=== PATIENT | male | born 1930 | race Caucasian/White ===

== ENCOUNTER → 2016-08-09 | Outpatient (CLI) | payer MEDICARE, OTHER ==
[~2016-08-09] MED LIST: ASPI81TA82 PO; ATOR20TA42 PO; AVOD0.5C PO; COUM3TAB PO; FENO50TA PO; FISH1000 PO; FURO40TA PO; KLOR20TA6 PO; METO25CR PO; NIAS10004 PO; ONDA1TAB16 PO; TAB-TAB PO; TAMS0.4C67 PO; TOVIAZ PO
== END ==
LOC: PLAB 13:51
DX: M32.10 Systemic lupus erythematosus, organ or system involvement unspecified (principal)
CPT/HCPCS: 36415; 86038; 86235

== ENCOUNTER 2016-10-31 14:37 | Emergency (ER) | payer MEDICARE, OTHER ==
[2016-10-31 14:55] VITALS: BP 101/54; PULSE 64; RESP 20; TEMP 99; O2SAT 95
[2016-10-31] MEDS ORDERED: TOPR25TA PO (15:02)
[2016-10-31] MEDS ORDERED: LIPI20TA PO (15:02)
[2016-10-31] MEDS ORDERED: FINA5TAB2 PO (15:02)
[2016-10-31] MEDS ORDERED: WARF4TAB52 PO (15:02)
[2016-10-31] MEDS ORDERED: FURO20TA PO (15:02)
[2016-10-31] MEDS ORDERED: FISH1000 PO (15:02)
[2016-10-31] MEDS ORDERED: POTA-243 PO (15:02)
[2016-10-31] MEDS ORDERED: FENO50TA PO (15:02)
[2016-10-31] MEDS ORDERED: TAMS0.4C4 PO (15:02)
[2016-10-31] MEDS ORDERED: MULT1TAB46 (15:02)
[2016-10-31] MEDS ORDERED: MIRA50TA PO (15:02)
[2016-10-31] MEDS ORDERED: CHOL1CAP8 PO (15:02)
[2016-10-31] MEDS ORDERED: ASPI81CH CHEW (15:02)
[2016-10-31 15:56] VITALS: BP_SYST 120; BP_SYST 122; BP_SYST 91; BP_DIAS 54; BP_DIAS 65; BP_DIAS 68; RESP 20
[2016-10-31] MEDS ORDERED: SODIUM CHLORID 0.9% 500 ML INJ 500 ML IV ONE (16:00)
[2016-10-31] MEDS ORDERED: TETANUS/DIPHTHERIA TOXOID ADULT 0.5 ML VIAL IM ONE (16:00)
--- NOTE | 2016-10-31 16:17 | PD ---
HPI Chief Complaint: Fall Time Seen by Provider: 15:45 Travel History International Travel<30 days: No Contact w/Intl Traveler<30days: No Traveled to known affect area: No History of Present Illness HPI 86-year-old male presents to the emergency room for evaluation after having a difficult time getting off the ground. Patient was working outside, kneeling on the ground, moving concrete blocks. States he was outside for 30 minutes. Patient states he was moving concrete blocks from the front of the hospital back also and then kneeling on the ground to arrange them. After about 20 minutes, he tried to get up and was unable to. He fell from his knees to his buttocks trying to roll over to get his knees under him to stand up. States his became twisted like a pretzel. His neighbor and tried to assist him and they were unsuccessful. They called the ambulance he was able to get him into the stretcher and recommended he come to the emergency room for evaluation of weakness. Patient denies any musculoskeletal or back pain or paresthesias. Denies any general weakness, chest pain, shortness of breath, nausea, vomiting, and headache. He sustained multiple superficial abrasions to bilateral lower extremities from kneeling on concrete. Unknown last tetanus. PFSH Past Medical History Arthritis: No Asthma: No Atrial Fibrillation: Yes Blood Disorders: No Depression: Yes (PT STATES DEPRESSION OFF AND ON) Heart Rhythm Problems: Yes Cancer: No Cardiovascular Problems: Yes (CABG X4 VESSELS, AND MITRAL VALVE REPAIR) High Cholesterol: Yes Chest Pain: No Congestive Heart Failure: No COPD: No Cerebrovascular Accident: No Coronary Artery Disease: Yes Diminished Hearing: No Deep Vein Thrombosis: Yes Endocrine: No Gastrointestinal Disorders: Yes GERD: Yes Genitourinary: Yes Headaches: No Hepatitis: Yes (PT STATED "CATARRHAL JAUNDICE") Hiatal Hernia: Yes Hypertension: Yes Immune Disorder: No Kidney Stones: No Musculoskeletal: No Neurologic: No Reproductive: No Respiratory: No Migraines: No Myocardial Infarction: No Renal Failure: No Seizures: No Sleep Apnea: No Ulcer: No Past Surgical History Abdominal Surgery: Yes Appendectomy: Yes Cardiac Surgery: Yes Cholecystectomy: No Coronary Artery Bypass Graft: Yes Ear Surgery: No Endocrine Surgery: No Eye Surgery: Yes Genitourinary Surgery: No Oral Surgery: Yes Thoracic Surgery: Yes Tonsillectomy: Yes Valve Replacement: Yes (MITRAL) Other Surgery: Yes (APPENDECTOMY) Social History Alcohol Use: Yes (SOC) Tobacco Use: No Substance Use: No Allergies-Medications (Allergen,Severity, Reaction): Coded Allergies: No Known Allergies (Verified , 10/31/16) Reported Meds & Prescriptions Reported Meds & Active Scripts Active Reported Fish Oil ([place]-3 Fatty Acids) 1,000 Mg Cap 1,200 Mg PO DAILY Vitamin D3 (Cholecalciferol) 400 Unit Cap 800 Units PO DAILY Myrbetriq (Mirabegron) 50 Mg Tab 50 Mg PO DAILY Klor-Con 10 (Potassium Chloride) 10 Meq Tab 10 Meq PO DAILY Lipitor (Atorvastatin Calcium) 20 Mg Tab 20 Mg PO HS Tamsulosin (Tamsulosin HCl) 0.4 Mg Cap 0.4 Mg PO HS Multi Vitamin Daily (Multiple Vitamin) 1 Tab Tab Aspirin 81 Mg Chew 81 Mg CHEW DAILY Furosemide 20 Mg Tab 20 Mg PO DAILY Toprol XL (Metoprolol Succinate) 25 Mg Tab 25 Mg PO DAILY Finasteride 5 Mg Tab 5 Mg PO DAILY Do not crush. Tricor (Fenofibrate) 145 Mg Tab 145 Mg PO DAILY Takw with food. Warfarin 1 Mg Tab 1.5 Mg PO M,W,F Review of Systems Except as stated in HPI: all other systems reviewed are Neg Physical Exam Narrative GENERAL: Well-nourished, well-developed male in no acute distress. Afebrile. Resting comfortably in bed. Vital signs stable. SKIN: Focused skin assessment warm/dry. Superficial abrasions to bilateral lower extremities and hands. HEAD: Normocephalic. EYES: No scleral icterus. No injection or drainage. NECK: Supple, trachea midline. No JVD or lymphadenopathy. CARDIOVASCULAR: Regular rate and rhythm without murmurs, gallops, or rubs. RESPIRATORY: Breath sounds equal bilaterally. No accessory muscle use. MUSCULOSKELETAL: No cyanosis, or edema. Data Data Last Documented VS Vital Signs Date Time Temp Pulse Resp B/P Pulse Ox O2 Delivery O2 Flow Rate FiO2 10/31/16 17:21 65 20 103/53 95 10/31/16 14:55 99.0 Orders Tetanus/Diphtheria Tox Adult (Tetanus/Di (10/31/16 16:00) Sodium Chlorid 0.9% 500 Ml Inj (Ns 500 M (10/31/16 16:00) MDM Medical Decision Making Medical Screen Exam Complete: Yes Emergency Medical Condition: Yes Medical Record Reviewed: Yes Differential Diagnosis Weakness, abrasion, laceration, contusion, fracture, strain, sprain Narrative Course 86-year-old male presents to the emergency room for evaluation of having a difficult time standing up after kneeling on the concrete for 20 minutes just prior to arrival. Patient required ambulance assistance to get off the ground. He did not fall. Was outside for 30 minutes. Denies any pain at this time. Vital signs stable. When he was ambulated in the emergency room with assistance , he reports feeling weak at the knees. Some orthostatic hypotension upon standing with his systolic blood pressure dropping 30 mmHg. Patient was given 500 mL bolus. After bolus, patient's blood pressure improved. He denies any complaints and is adamantly asking to go home. States he feels less weakness in his knees upon standing. His vital signs have remained stable. He is well- appearing. Refill patient's age contributed significantly to his inability to get up without assistance from the concrete ground. I spoke to my attending physician, Dr. Dale, who agrees he is stable for discharge. Patient denies fever, chills, nausea, vomiting, lightheadedness, dizziness, generalized weakness, pain, chest pain, and shortness of breath. He was told to continue fluids and follow up with his primary care physician or return for worsening symptoms. He understands and agrees to plan. Diagnosis Primary Impression: Dehydration Referrals: Primary Care Physician Patient Instructions: Dehydration (ED), General Instructions Additional Instructions: Rest and drink plenty of fluids. Follow-up with a primary care physician. Return to the emergency room for worsening symptoms. Med/Other Pt SpecificInfo: Prescription(s) given Disposition: 01 DISCHARGE HOME Condition: Stable Selena Garcia Oct 31, 2016 16:17
[2016-10-31 16:45] VITALS: BP 129/70; PULSE 76; RESP 20; O2SAT 94
[2016-10-31 17:21] VITALS: BP 103/53; PULSE 65; RESP 20; O2SAT 95
== END 2016-10-31 18:11 | disposition home or self-care (01) ==
LOC: PHEFT 14:37
DX: E86.0 Dehydration (principal); Z23 Encounter for immunization
CPT/HCPCS: 90471; 90714; 96360; 99284; J7040

== ENCOUNTER 2016-11-03 18:19 | Emergency (ER) | payer MEDICARE, OTHER ==
[~2016-11-03] VITALS: Ht 180.3 cm; Wt 93.0 kg
[~2016-11-03 18:19] MED LIST changes: +ASPI81CH CHEW; -ASPI81TA82 PO; -ATOR20TA42 PO; -AVOD0.5C PO; +CHOL1CAP8 PO; -COUM3TAB PO; +FINA5TAB2 PO; +FURO20TA PO; -FURO40TA PO; -KLOR20TA6 PO; +LIPI20TA PO; -METO25CR PO; +MIRA50TA PO; +MULT1TAB46; -NIAS10004 PO; -ONDA1TAB16 PO; +POTA-243 PO; -TAB-TAB PO; +TAMS0.4C4 PO; -TAMS0.4C67 PO; +TOPR25TA PO; -TOVIAZ PO; +WARF4TAB52 PO
[2016-11-03 18:21] VITALS: BP 132/71; PULSE 67; RESP 15; TEMP 98.4; O2SAT 97
--- NOTE | 2016-11-03 19:05 | PD ---
HPI . Left leg swelling Chief Complaint: Edema Time Seen by Provider: 18:33 Travel History International Travel<30 days: No Contact w/Intl Traveler<30days: No Traveled to known affect area: No History of Present Illness HPI This patient presents with a chief complaint of swelling of the left lower extremity. Onset has been a few days. It has been constant. There is no associated pain. No exacerbating or relieving factors. No chest pain or shortness of breath. The patient states that he had a fall several days ago. He states that he was kneeling on his knees moving some concrete blocks when he fell backward. He states that he was unable to get up. He states that he was "twisted like a pretzel." His and neighbor were unable to assist him to his feet. Therefore rescue was called and he was brought to hospital for further evaluation. He was treated here for orthostatic hypotension with IV fluids. PFSH Past Medical History Arthritis: No Asthma: No Atrial Fibrillation: Yes Blood Disorders: No Depression: Yes (PT STATES DEPRESSION OFF AND ON) Heart Rhythm Problems: Yes Cancer: No Cardiovascular Problems: Yes (CABG X4 VESSELS, AND MITRAL VALVE REPAIR) High Cholesterol: Yes Chest Pain: No Congestive Heart Failure: No COPD: No Cerebrovascular Accident: No Coronary Artery Disease: Yes Diminished Hearing: No Deep Vein Thrombosis: Yes Endocrine: No Gastrointestinal Disorders: Yes GERD: Yes Genitourinary: Yes Headaches: No Hepatitis: Yes (PT STATED "CATARRHAL JAUNDICE") Hiatal Hernia: Yes Hypertension: Yes Immune Disorder: No Kidney Stones: No Musculoskeletal: No Neurologic: No Reproductive: No Respiratory: No Migraines: No Myocardial Infarction: No Renal Failure: No Seizures: No Sleep Apnea: No Ulcer: No ?: Not Past Surgical History Abdominal Surgery: Yes Appendectomy: Yes Cardiac Surgery: Yes Cholecystectomy: No Coronary Artery Bypass Graft: Yes Ear Surgery: No Endocrine Surgery: No Eye Surgery: Yes Genitourinary Surgery: No Oral Surgery: Yes Thoracic Surgery: Yes Tonsillectomy: Yes Valve Replacement: Yes (MITRAL) Other Surgery: Yes (APPENDECTOMY) Social History Alcohol Use: Yes (SOC) Tobacco Use: No Substance Use: No Allergies-Medications (Allergen,Severity, Reaction): Coded Allergies: No Known Allergies (Verified , 11/03/16) Reported Meds & Prescriptions Reported Meds & Active Scripts Active Reported Fish Oil ([place]-3 Fatty Acids) 1,000 Mg Cap 1,200 Mg PO DAILY Vitamin D3 (Cholecalciferol) 400 Unit Cap 800 Units PO DAILY Myrbetriq (Mirabegron) 50 Mg Tab 50 Mg PO DAILY Klor-Con 10 (Potassium Chloride) 10 Meq Tab 10 Meq PO DAILY Lipitor (Atorvastatin Calcium) 20 Mg Tab 20 Mg PO HS Tamsulosin (Tamsulosin HCl) 0.4 Mg Cap 0.4 Mg PO HS Multi Vitamin Daily (Multiple Vitamin) 1 Tab Tab Aspirin 81 Mg Chew 81 Mg CHEW DAILY Furosemide 20 Mg Tab 20 Mg PO DAILY Toprol XL (Metoprolol Succinate) 25 Mg Tab 25 Mg PO DAILY Finasteride 5 Mg Tab 5 Mg PO DAILY Do not crush. Tricor (Fenofibrate) 145 Mg Tab 145 Mg PO DAILY Takw with food. Warfarin 1 Mg Tab 1.5 Mg PO M,W,F Review of Systems Except as stated in HPI: all other systems reviewed are Neg General / Constitutional: No: Fever, Chills Cardiovascular: No: Chest Pain or Discomfort Respiratory: No: Shortness of Breath Gastrointestinal: No: Nausea, Vomiting Musculoskeletal: Positive: Edema, No: Myalgias, Arthralgias Physical Exam Narrative GENERAL: Awake and alert and in no acute distress. SKIN: Warm and dry. Patient is noted to have a bruise on the left knee. The skin of the lower extremities has normal and equal color. Normal and equal temperature. HEAD: Atraumatic. Normocephalic. EYES: Pupils equal and round. NECK: Trachea midline. CARDIOVASCULAR: Regular rate and rhythm. He has full and equal distal pulses. RESPIRATORY: No accessory muscle use. MUSCULOSKELETAL: No obvious deformities. Swelling of the left lower extremity. Nontender. NEUROLOGICAL: Awake and alert. No obvious cranial nerve deficits. Motor grossly within normal limits. Normal speech. PSYCHIATRIC: Appropriate mood and affect; insight and judgment normal. Data Data Last Documented VS Vital Signs Date Time Temp Pulse Resp B/P Pulse Ox O2 Delivery O2 Flow Rate FiO2 11/03/16 20:00 78 16 147/88 98 Room Air 11/03/16 18:21 98.4 Orders Us Leg Venous Doppler (11/03/16 18:41) Knee, Complete (4vws) (11/03/16 18:41) Ed Poc Ultrasound (11/03/16 19:17) MDM Medical Decision Making Medical Screen Exam Complete: Yes Emergency Medical Condition: Yes Medical Record Reviewed: Yes (patient's past medical history includes previous [place], hypertension, BPH, hyperlipidemia, previous PE, atrial fibrillation and is currently. He has also had a left total knee replacement.) Differential Diagnosis Differential diagnosis of leg pain includes but is not limited to lumbar radiculopathy, arthritis, myalgias, DVT. Narrative Course This patient presents for the evaluation of left lower extremity swelling. He had a fall from a kneeling position several days ago. He states that his legs were twisted abnormally when he sustained this fall. He now has a bruise on the left knee. I suspect that the left lower extreme swelling is secondary to this fall. However, he will be evaluated for possible DVT. I have also ordered an x-ray of his knee. Well's criteria: active cancer N bedridden N calf swelling Y engorged superficial veins N leg swelling Y localized tenderness N unilateral pitting edema N recent ext immobilization N h/o DVT N plausible alternative DX Y Last Impressions Knee X-Ray 11/03/16 1841 Signed Impressions: Service Date/Time: Thursday, November 03, 2016 18:44 - CONCLUSION: Intact total knee arthroplasty for technique and small joint effusion. Tommy Marrufo MD The x-ray was independently viewed by me. LLE U/S>>Normal examination. Procedures Procedure Narrative VENOUS ULTRASOUND: Following patient consent, identification of the correct patient and identification of the correct extremity, the veins of the thigh were examined from the inguinal ligament to the popliteal fossa. The vein was completely compressible along its entire course and no visible clot was seen. Diagnosis Primary Impression: Swelling of left lower extremity Patient Instructions: General Instructions, Leg Edema (ED) Disposition: 01 DISCHARGE HOME Condition: Stable Yue Almeida MD Nov 03, 2016 19:05
--- NOTE | 2016-11-03 19:13 | RADRPT ---
EXAM DATE/TIME: 11/03/2016 18:44 [facility] COMPARISON: No previous studies available for comparison. INDICATIONS : Left knee pain and swelling status post fall 4 days prior. MEDICAL HISTORY : Cardiovascular disease. SURGICAL HISTORY : CABG. Total knee replacement, left. ENCOUNTER: Initial ACUITY: 4 - 6 days PAIN SCORE: 3/10 LOCATION: Left knee. FINDINGS: Total knee arthroplasty is in place. The femoral, tibial, and patellar components appear intact. Th ere are no signs of loosening or fracture. Small joint effusion is seen. CONCLUSION: Intact total knee arthroplasty for technique and small joint effusion. Tommy Marrufo MD on November 03, 2016 at 19:12 Board Certified Radiologist. This report was verified electronically.
[2016-11-03 20:00] VITALS: BP 147/88; PULSE 78; RESP 16; O2SAT 98
--- NOTE | 2016-11-03 20:26 | RADRPT ---
EXAM DATE/TIME: 11/03/2016 20:00 [facility] COMPARISON: No previous studies available for comparison. INDICATIONS : Left knee pain and swelling status post fall 4 days prior. MEDICAL HISTORY : Cardiovascular disease. SURGICAL HISTORY : Total knee replacement, left. CABG ENCOUNTER: Initial ACUITY: 4 - 6 days PAIN SCORE: 0/10 LOCATION: Left leg. TECHNIQUE: Venous ultrasound of the leg was performed from the inguinal ligament to the proximal calf. Real-janett e, color Doppler and spectral tracing, compression and augmentation techniques were used. FINDINGS: There is normal compressibility of the deep venous system from the inguinal region to the proximal ca lf. No echogenic clot is seen in the lumen of the common femoral, femoral, popliteal, and posterior tibial veins. There is a normal response of the venous system to proximal and distal augmentation an d respiration. CONCLUSION: Normal examination. Tommy Marrufo MD on November 03, 2016 at 20:24 Board Certified Radiologist. This report was verified electronically.
[2016-11-03 20:41] VITALS: BP 154/80
== END 2016-11-03 20:45 | disposition home or self-care (01) ==
LOC: PHED 18:19
DX: M79.89 Other specified soft tissue disorders (principal); M25.562 Pain in left knee
CPT/HCPCS: 73564; 93971; 99284

== ENCOUNTER → 2017-01-28 | Outpatient (CLI) | payer MEDICARE, OTHER ==
[2017-01-28 10:15] LABS: HDL CHOLESTEROL 25.6 MG/DL (40.0-60.0); INDIRECT BILIRUBIN 0.7 MG/DL (0.0-0.8); TOTAL BILIRUBIN ADULT 1.1 MG/DL (0.2-1.0)
== END ==
LOC: PLAB 06:51
PROVIDERS: ATTEND Internal Medicine Interventional Cardiology
DX: E78.00 Pure hypercholesterolemia, unspecified (principal); Z79.899 Other long term (current) drug therapy
CPT/HCPCS: 36415; 80061; 80076

== ENCOUNTER → 2017-06-11 | Outpatient (CLI) | payer MEDICARE, OTHER ==
[~2017-06-11] MED LIST changes: +ASPI-516 CHEW; -ASPI81CH CHEW; +KLOR10TA PO; -POTA-243 PO
[2017-06-11 13:41] LABS: AUTOMATED NEUTROPHIL # 3.5 TH/MM3 (1.8-7.7); BASOPHIL # 0.1 TH/MM3 (0-0.2); BASOPHIL % 1.2 % (0.0-2.0); EOSINOPHIL # 0.2 TH/MM3 (0-0.4); HEMATOCRIT 40.4 % (39.0-51.0); HEMOGLOBIN 13.9 GM/DL (13.0-17.0); LYMPH % 24.1 % (9.0-44.0); LYMPHOCYTE # 1.3 TH/MM3 (1.0-4.8); MEAN CORPUSCULAR HEMOGLOBIN 30.9 PG (27.0-34.0); MEAN CORPUSCULAR HGB CONC 34.3 % (32.0-36.0); MEAN PLATELET VOLUME 8.5 FL (7.0-11.0); MONO % 7.9 % (0.0-8.0); MONOCYTE # 0.4 TH/MM3 (0-0.9); NEUT % 63.8 % (16.0-70.0); PLATELET COUNT 180 TH/MM3 (150-450); RED BLOOD COUNT 4.49 MIL/MM3 (4.50-5.90); RED CELL DISTRIBUTION WIDTH 14.3 % (11.6-17.2); WHITE BLOOD COUNT 5.5 TH/MM3 (4.0-11.0)
[2017-06-11 13:49] LABS: ALBUMIN 3.3 GM/DL (3.4-5.0); ALT (GPT) 26 U/L (12-78); AST (GOT) 21 U/L (15-37); BICARBONATE 28.9 MEQ/L (21.0-32.0); BLOOD UREA NITROGEN 15 MG/DL (7-18); CHLORIDE 101 MEQ/L (98-107); CHOLESTEROL 167 MG/DL (120-200); CREATININE 1.11 MG/DL (0.60-1.30); GLOMERULAR FILTRATION RATE 62 ML/MIN (>89); GLUCOSE,FASTING 278 MG/DL (74-99); SODIUM (NA) 137 MEQ/L (136-145); TRIGLYCERIDES 332 MG/DL (42-150)
[2017-06-11 13:58] LABS: ALKALINE PHOSPHATASE 71 U/L (45-117); CHOLESTEROL/ HDL RATIO 5.83 RATIO; FREE T4 0.99 NG/DL (0.76-1.46); HDL CHOLESTEROL 28.6 MG/DL (40.0-60.0); LDL CHOLESTEROL 72 MG/DL (0-99); TOTAL BILIRUBIN ADULT 0.9 MG/DL (0.2-1.0); TOTAL PROTEIN 6.5 GM/DL (6.4-8.2)
[2017-06-11 17:44] LABS: HEMOGLOBIN A1C 12.8 % (4.3-6.0)
== END ==
LOC: PLAB 09:08
PROVIDERS: ATTEND Family Medicine
DX: I10 Essential (primary) hypertension (principal); E11.9 Type 2 diabetes mellitus without complications
CPT/HCPCS: 36415; 80053; 80061; 83036; 84439; 84443; 85025

== ENCOUNTER 2017-08-02 21:59 | Observation (INO) | payer MEDICARE, OTHER ==
[~2017-08-02] VITALS: Ht 182.9 cm; Wt 87.4 kg
[2017-08-02 21:59] VITALS: BP 131/69; PULSE 73; RESP 18; TEMP 98.9; O2SAT 95
--- NOTE | 2017-08-02 22:06 | PD ---
HPI Chief Complaint: Dizzy Time Seen by Provider: 22:03 Travel History International Travel<30 days: No Contact w/Intl Traveler<30days: No Traveled to known affect area: No History of Present Illness HPI Patient states that as he was walking around he just suddenly felt very lightheaded and dizzy and patient placed himself down because he was afraid he would fall. He was not feeling much better so he asked his who lives with them at a private home. Patient then called 911 and he was brought in by EMS. [id number], his first glucose upon arrival by EMS was 26, he was given D50, his glucose went up to the 200s and by the time he arrived to the ER he was back down to the 90s, and then a repeat those shortly after was down to 60. Patient is on glyburide and Metformin. Patient denies feeling any lightheaded or dizziness prior to this particular episode, denies any nausea vomiting diarrhea, denies any pain to any part of his body, No known drug allergies Past medical history significant for cataracts, tonsillectomy, CABG 4, mitral valve repair, hypercholesterolemia, atrial fibrillation, hypertension, DVT, hiatal hernia, appendectomy, GERD, depression history liver disease history PFSH Past Medical History Arthritis: No Asthma: No Atrial Fibrillation: Yes Blood Disorders: No Depression: Yes (PT STATES DEPRESSION OFF AND ON) Heart Rhythm Problems: Yes Cancer: No Cardiovascular Problems: Yes (CABG X4 VESSELS, AND MITRAL VALVE REPAIR) High Cholesterol: Yes Chest Pain: No Congestive Heart Failure: No COPD: No Cerebrovascular Accident: No Coronary Artery Disease: Yes Diminished Hearing: No Deep Vein Thrombosis: Yes Endocrine: No Gastrointestinal Disorders: Yes GERD: Yes Genitourinary: Yes Headaches: No Hepatitis: Yes (PT STATED "CATARRHAL JAUNDICE") Hiatal Hernia: Yes Hypertension: Yes Immune Disorder: No Kidney Stones: No Musculoskeletal: No Neurologic: No Reproductive: No Respiratory: No Migraines: No Myocardial Infarction: No Renal Failure: No Seizures: No Sleep Apnea: No Ulcer: No Past Surgical History Abdominal Surgery: Yes Appendectomy: Yes Cardiac Surgery: Yes Cholecystectomy: No Coronary Artery Bypass Graft: Yes Ear Surgery: No Endocrine Surgery: No Eye Surgery: Yes Genitourinary Surgery: No Oral Surgery: Yes Thoracic Surgery: Yes Tonsillectomy: Yes Valve Replacement: Yes (MITRAL) Other Surgery: Yes (APPENDECTOMY) Social History Alcohol Use: Yes (SOC) Tobacco Use: No Substance Use: No Allergies-Medications (Allergen,Severity, Reaction): Coded Allergies: No Known Allergies (Verified Allergy, Unknown, 08/02/17) Reported Meds & Prescriptions Reported Meds & Active Scripts Active Reported Fish Oil ([place]-3 Fatty Acids) 1,000 Mg Cap 1,200 Mg PO DAILY Vitamin D3 (Cholecalciferol) 400 Unit Cap 800 Units PO DAILY Myrbetriq (Mirabegron) 50 Mg Tab 50 Mg PO DAILY Klor-Con 10 (Potassium Chloride) 10 Meq Tab 10 Meq PO DAILY Lipitor (Atorvastatin Calcium) 20 Mg Tab 20 Mg PO HS Tamsulosin (Tamsulosin HCl) 0.4 Mg Cap 0.4 Mg PO HS Multi Vitamin Daily (Multiple Vitamin) 1 Tab Tab Aspirin 81 Mg Chew 81 Mg CHEW DAILY Furosemide 20 Mg Tab 20 Mg PO DAILY Toprol XL (Metoprolol Succinate) 25 Mg Tab 25 Mg PO DAILY Finasteride 5 Mg Tab 5 Mg PO DAILY Do not crush. Tricor (Fenofibrate) 145 Mg Tab 145 Mg PO DAILY Takw with food. Warfarin 1 Mg Tab 1.5 Mg PO M,W,F Review of Systems General / Constitutional: No: Fever Eyes: No: Visual changes HENT: Positive: Lightheadedness Cardiovascular: No: Chest Pain or Discomfort Respiratory: No: Shortness of Breath Gastrointestinal: No: Abdominal Pain Genitourinary: No: Dysuria Musculoskeletal: No: Pain Skin: No Rash Neurologic: No: Weakness Psychiatric: No: Depression Endocrine: No: Polydipsia Hematologic/Lymphatic: No: Easy Bruising Physical Exam Narrative GENERAL: SKIN: Warm and dry. HEAD: Atraumatic. Normocephalic. EYES: Pupils equal and round. No scleral icterus. No injection or drainage. ENT: No nasal bleeding or discharge. Mucous membranes pink and moist. NECK: Trachea midline. No JVD. CARDIOVASCULAR: Regular rate and rhythm. RESPIRATORY: No accessory muscle use. Clear to auscultation. Breath sounds equal bilaterally. GASTROINTESTINAL: Abdomen soft, non-tender, nondistended. MUSCULOSKELETAL: Extremities without clubbing, cyanosis, or edema. No obvious deformities. NEUROLOGICAL: Awake and alert. No obvious cranial nerve deficits. Motor grossly within normal limits. Five out of 5 muscle strength in the arms and legs. Normal speech. PSYCHIATRIC: Appropriate mood and affect; insight and judgment normal. Data Data Last Documented VS Vital Signs Date Time Temp Pulse Resp B/P (MAP) Pulse Ox O2 Delivery O2 Flow Rate FiO2 08/02/17 22:38 62 18 95 Room Air 08/02/17 21:59 98.9 131/69 (89) Orders Orders Electrocardiogram (08/02/17 22:07) Complete Blood Count With Diff (08/02/17 22:07) Comprehensive Metabolic Panel (08/02/17 22:07) Ckmb (Isoenzyme) Profile (08/02/17 22:07) Troponin I (08/02/17 22:07) B-Type Natriuretic Peptide (08/02/17 22:07) Prothrombin Time / Inr (Pt) (08/02/17 22:07) Act Partial Throm Time (Ptt) (08/02/17 22:07) Lipase (08/02/17 22:07) Thyroid Stimulating Hormone (08/02/17 22:07) Chest, Single Ap (08/02/17 22:07) Ct Brain W/O Iv Contrast(Rout) (08/02/17 22:07) Iv Access Insert/Monitor (08/02/17 22:07) Ecg Monitoring (08/02/17 22:07) Oximetry (08/02/17 22:07) Dextrose 10% Inj (D... W/Sodium Chloride (08/02/17 22:15) Diet 2200 [place] Cons Carb (08/03/17 Breakfast) Dextrose 50% In [place] (Vial) Inj (D50w (Vi (08/02/17 22:45) Labs Laboratory Tests Test 08/02/17 22:10 White Blood Count 9.4 TH/MM3 Red Blood Count 4.05 MIL/MM3 Hemoglobin 12.0 GM/DL Hematocrit 36.0 % Mean Corpuscular Volume 88.9 FL Mean Corpuscular Hemoglobin 29.7 PG Mean Corpuscular Hemoglobin Concent 33.4 % Red Cell Distribution Width 13.4 % Platelet Count 314 TH/MM3 Mean Platelet Volume 7.3 FL Neutrophils (%) (Auto) 78.6 % Lymphocytes (%) (Auto) 11.3 % Monocytes (%) (Auto) 8.3 % Eosinophils (%) (Auto) 1.0 % Basophils (%) (Auto) 0.8 % Neutrophils # (Auto) 7.3 TH/MM3 Lymphocytes # (Auto) 1.1 TH/MM3 Monocytes # (Auto) 0.8 TH/MM3 Eosinophils # (Auto) 0.1 TH/MM3 Basophils # (Auto) 0.1 TH/MM3 CBC Comment DIFF FINAL Differential Comment Prothrombin Time 17.8 SEC Prothromb Time International Ratio 1.8 RATIO Activated Partial Thromboplast Time 33.8 SEC Blood Urea Nitrogen 16 MG/DL Creatinine 1.00 MG/DL Random Glucose 58 MG/DL Total Protein 6.7 GM/DL Albumin 2.7 GM/DL Calcium Level 8.9 MG/DL Aspartate Amino Transf (AST/SGOT) 20 U/L Alanine Aminotransferase (ALT/SGPT) 21 U/L Total Bilirubin 0.4 MG/DL Sodium Level 141 MEQ/L Potassium Level 3.6 MEQ/L Chloride Level 107 MEQ/L Carbon Dioxide Level 28.4 MEQ/L Anion Gap 6 MEQ/L Estimat Glomerular Filtration Rate 70 ML/MIN Total Creatine Kinase 52 U/L Troponin I LESS THAN 0.02 NG/ML B-Type Natriuretic Peptide 343 PG/ML Lipase 171 U/L Thyroid Stimulating Hormone 3rd Gen 3.490 uIU/ML MDM Medical Decision Making Medical Screen Exam Complete: Yes Emergency Medical Condition: Yes Medical Record Reviewed: Yes Interpretation(s) EKG shows atrial fibrillation with controlled ventricular rate, at 67, no evidence of any LVH pattern, no evidence of any STEMI pattern. Differential Diagnosis Hypoglycemia secondary to pneumonia versus STEMI versus non-STEMI versus UTI versus most likely oral hypoglycemics Narrative Course CBC shows no leukocytosis, normal H&H of 12/36, normal platelet count 314,000, no left shift Coagulation profile was slightly abnormal with INR elevated at 1.8 Electrolytes are all within normal limits with the exception of random glucose of 58, normal kidney functions normal liver functions, and normal pancreatic functions. First set of cardiac enzymes negative Chest x-ray read by radiologist shows small left-sided pleural effusion Diagnosis Primary Impression: Hypoglycemia secondary to sulfonylurea Qualified Codes: T38.3X4A - Poisoning by insulin and oral hypoglycemic [ antidiabetic] drugs, undetermined, initial encounter Admitting Information Admitting Physician Requests: Observation James Dale MD Aug 02, 2017 22:06
[2017-08-02] MEDS ORDERED: DEXTROSE 50% IN WATER 50 ML SYRINGE IV PUSH ONE (22:15)
[2017-08-02] MEDS ORDERED: SODIUM CHLORIDE 23.4% INJ 77 MEQ in DEXTROSE 10% INJ 1,000 ML IV SCH (22:15)
[2017-08-02 22:28] LABS: AUTOMATED NEUTROPHIL # 7.3 TH/MM3 (1.8-7.7); BASOPHIL # 0.1 TH/MM3 (0-0.2); BASOPHIL % 0.8 % (0.0-2.0); EOSINOPHIL # 0.1 TH/MM3 (0-0.4); LYMPH % 11.3 % (9.0-44.0); LYMPHOCYTE # 1.1 TH/MM3 (1.0-4.8); MEAN CELL VOLUME 88.9 FL (80.0-100.0); MEAN CORPUSCULAR HEMOGLOBIN 29.7 PG (27.0-34.0); MEAN CORPUSCULAR HGB CONC 33.4 % (32.0-36.0); MEAN PLATELET VOLUME 7.3 FL (7.0-11.0); MONO % 8.3 % (0.0-8.0); MONOCYTE # 0.8 TH/MM3 (0-0.9); NEUT % 78.6 % (16.0-70.0); PLATELET COUNT 314 TH/MM3 (150-450); RED BLOOD COUNT 4.05 MIL/MM3 (4.50-5.90); RED CELL DISTRIBUTION WIDTH 13.4 % (11.6-17.2); WHITE BLOOD COUNT 9.4 TH/MM3 (4.0-11.0)
--- NOTE | 2017-08-02 22:33 | RADRPT ---
EXAM DATE/TIME: 08/02/2017 22:16 [facility] COMPARISON: No previous studies available for comparison. INDICATIONS : Shortness of breath. MEDICAL HISTORY : Cardiovascular disease. SURGICAL HISTORY : Total knee replacement, left. CABG ENCOUNTER: Initial ACUITY: 1 day PAIN SCORE: 0/10 LOCATION: Bilateral chest FINDINGS: A single view of the chest demonstrates postoperative median sternotomy. Mild basilar airspace diseas e and small left effusion. No pneumothorax. CONCLUSION: 1. Postoperative median sternotomy and mitral valve surgery. Small left-sided pleural effusion and ba silar airspace disease. Miguel Powell MD on August 02, 2017 at 22:30 Board Certified Radiologist. This report was verified electronically.
[2017-08-02 22:37] LABS: CHLORIDE 107 MEQ/L (98-107); SODIUM (NA) 141 MEQ/L (136-145)
[2017-08-02 22:38] VITALS: PULSE 62; RESP 18; O2SAT 95
[2017-08-02 22:41] LABS: ALBUMIN 2.7 GM/DL (3.4-5.0); BICARBONATE 28.4 MEQ/L (21.0-32.0); BLOOD UREA NITROGEN 16 MG/DL (7-18); CALCIUM 8.9 MG/DL (8.5-10.1); GLUCOSE,RANDOM 58 MG/DL (74-106)
[2017-08-02 22:43] LABS: INTERNATIONAL NORMALIZED RATIO 1.8 RATIO; PROTHROMBIN TIME - PATIENT 17.8 SEC (9.8-11.6)
[2017-08-02 22:44] LABS: ALT (GPT) 21 U/L (12-78); AST (GOT) 20 U/L (15-37); GLOMERULAR FILTRATION RATE 70 ML/MIN (>89)
[2017-08-02] MEDS ORDERED: DEXTROSE 50% IN WATER 50 ML VIAL(D50) IV PUSH ONE (22:45)
[2017-08-02 22:46] LABS: TOTAL BILIRUBIN ADULT 0.4 MG/DL (0.2-1.0); TOTAL PROTEIN 6.7 GM/DL (6.4-8.2)
[2017-08-02 22:47] LABS: ALKALINE PHOSPHATASE 56 U/L (45-117)
[2017-08-02 22:49] LABS: TROPONIN I LESS THAN 0.02 NG/ML (0.02-0.05)
[2017-08-02 23:00] VITALS: BP 115/66; PULSE 64; RESP 16; O2SAT 96
[2017-08-02] MEDS ORDERED: GLUCAGON 1 MG/ML VIAL OTHER PRN (23:15)
[2017-08-02] MEDS ORDERED: SENNOSIDES 8.6 MG TAB PO PRN (23:15)
[2017-08-02] MEDS ORDERED: ACETAMINOPHEN/HYDROcodone 325 MG/5 MG TAB PO PRN (23:15)
[2017-08-02] MEDS ORDERED: LACTULOSE SYRUP 20 GM/30 ML CUP PO PRN (23:15)
[2017-08-02] MEDS ORDERED: BISACODYL 10 MG SUPP RECTAL PRN (23:15)
[2017-08-02] MEDS ORDERED: MAGNESIUM HYDROXIDE SUSP 30 ML CUP PO PRN (23:15)
[2017-08-02] MEDS ORDERED: ACETAMINOPHEN 325 MG TAB PO PRN (23:15)
[2017-08-02] MEDS ORDERED: ONDANSETRON HCL 4 MG/2 ML VIAL IVP PRN (23:15)
[2017-08-02] MEDS ORDERED: ACETAMINOPHEN/HYDROcodone 325 MG/10 MG TAB PO PRN (23:15)
[2017-08-02] MEDS ORDERED: SODIUM CHLORIDE 0.9% FLUSH 10 ML FLUSH IV FLUSH PRN (23:15)
--- NOTE | 2017-08-02 23:18 | RADRPT ---
EXAM DATE/TIME: 08/02/2017 22:52 [place] COMPARISON: No previous studies available for comparison. INDICATIONS : Altered mental status. RADIATION DOSE: 53.87 CTDIvol (mGy) MEDICAL HISTORY : Cardiovascular disease. Hypertension. Deep venous thrombosis.GERD SURGICAL HISTORY : CABG Appendectomy. ENCOUNTER: Initial ACUITY: 1 day PAIN SCALE: 0/10 LOCATION: cranial TECHNIQUE: Multiple contiguous axial images were obtained of the head. Using automated exposure control and adj ustment of the mA and/or kV according to patient size, radiation dose was kept as low as reasonably a chievable to obtain optimal diagnostic quality images. DICOM format image data is available electro nically for review and comparison. FINDINGS: The ventricles are enlarged with a prominent sulcal pattern compatible with atrophic change. No acute intracranial hemorrhage, acute cortical infarction, mass or midline shift is seen. Posterior fossa s tructures are unremarkable. Bone windows are unremarkable. CONCLUSION: 1. Atrophy as described above. No evidence of acute intracranial pathology. Vinod Wright MD on August 02, 2017 at 23:15 Board Certified Radiologist. This report was verified electronically.
[2017-08-02 23:50] VITALS: BP 131/74
[2017-08-03] VITALS: BP 150/80; PULSE 70; RESP 16; TEMP 98.1; O2SAT 96
[2017-08-03] MEDS ORDERED: DEXTROSE 50% IN WATER 50 ML SYRINGE IV PUSH ONE (01:30)
[2017-08-03] MEDS ORDERED: DEXTROSE 10% INJ 1,000 ML IV SCH ×2 (03:15)
[2017-08-03] MEDS: DEXTROSE 50% IN WATER 50 ML VIAL(D50) IV PUSH PRN ×2 (03:40→05:51)
[2017-08-03 08:00] VITALS: BP 120/63; PULSE 70; RESP 14; TEMP 98; O2SAT 96
[2017-08-03 08:32] LABS: AUTOMATED NEUTROPHIL # 6.9 TH/MM3 (1.8-7.7); BASOPHIL % 0.5 % (0.0-2.0); EOSINOPHIL # 0.1 TH/MM3 (0-0.4); EOSINOPHIL % 1.3 % (0.0-4.0); HEMATOCRIT 33.8 % (39.0-51.0); HEMOGLOBIN 11.1 GM/DL (13.0-17.0); LYMPH % 15.5 % (9.0-44.0); LYMPHOCYTE # 1.4 TH/MM3 (1.0-4.8); MEAN CELL VOLUME 88.9 FL (80.0-100.0); MEAN CORPUSCULAR HEMOGLOBIN 29.1 PG (27.0-34.0); MEAN CORPUSCULAR HGB CONC 32.8 % (32.0-36.0); MEAN PLATELET VOLUME 7.1 FL (7.0-11.0); MONO % 7.7 % (0.0-8.0); MONOCYTE # 0.7 TH/MM3 (0-0.9); PLATELET COUNT 318 TH/MM3 (150-450); RED CELL DISTRIBUTION WIDTH 13.7 % (11.6-17.2); WHITE BLOOD COUNT 9.1 TH/MM3 (4.0-11.0)
[2017-08-03] MEDS: ASPIRIN 81 MG CHEW TAB CHEW SCH (08:35)
[2017-08-03] MEDS: DOCUSATE SODIUM 50 MG/SENNA 8.6 MG TAB PO SCH ×2 (08:35→21:00)
[2017-08-03] MEDS: SODIUM CHLORIDE 0.9% FLUSH 10 ML FLUSH IV FLUSH SCH ×2 (08:36→21:44)
[2017-08-03 08:43] LABS: CHLORIDE 105 MEQ/L (98-107); SODIUM (NA) 138 MEQ/L (136-145)
[2017-08-03 08:45] LABS: INTERNATIONAL NORMALIZED RATIO 1.7 RATIO; PROTHROMBIN TIME - PATIENT 17.4 SEC (9.8-11.6)
[2017-08-03 08:49] LABS: CALCIUM 8.8 MG/DL (8.5-10.1)
[2017-08-03 08:50] LABS: ALBUMIN 2.6 GM/DL (3.4-5.0); BICARBONATE 27.1 MEQ/L (21.0-32.0); BLOOD UREA NITROGEN 16 MG/DL (7-18); GLUCOSE,RANDOM 86 MG/DL (74-106)
[2017-08-03 08:53] LABS: ALT (GPT) 19 U/L (12-78); AST (GOT) 18 U/L (15-37); CREATININE 0.94 MG/DL (0.60-1.30); GLOMERULAR FILTRATION RATE 76 ML/MIN (>89)
[2017-08-03 08:54] LABS: TOTAL BILIRUBIN ADULT 0.6 MG/DL (0.2-1.0); TOTAL PROTEIN 6.4 GM/DL (6.4-8.2)
[2017-08-03 08:55] LABS: ALKALINE PHOSPHATASE 56 U/L (45-117)
[2017-08-03] MEDS ORDERED: WARFARIN SOD 1 MG TAB PO SCH ×2 (11:30→16:00)
[2017-08-03] MEDS ORDERED: NON-FORMULARY DRUG (Omega-3 Fatty Acids (Fish Oil) 1,200 MG) PO SCH (11:30)
--- NOTE | 2017-08-03 11:30 | HHI.HP ---
HPI Service [facility] Hospitalists Primary Care Physician Alirio Smith MD Admission Diagnosis HYPOGLYCEMIA Diagnoses: Chief Complaint: Weakness, cough Travel History International Travel<30 Days: No Contact w/Intl Traveler <30 Da: No Traveled to Known Affected Are: No History of Present Illness This is an 87-year-old male with extensive past medical history as detailed below who presented to [facility] after he experienced an episode of feeling lightheaded with DC and then he placed himself down because he was afraid he would fall. The patient also elicits some history of generalized weakness. The patient called EMS services. The patient also states he has been coughing for couple weeks however denies fevers or chills. When EMS arrived as per ED physician of record. The patient's blood sugar was 26 and he was given D50 after which his blood sugars went up to the 200s. By the time he arrived to the ER he was brought down to the 90s and repeat shortly after was down to 60. Patient states he is on metformin and glyburide and he has been recently started by his primary care physician. The patient also states that he does not skip meals and he has been taking his medications as instructed. The patient currently states he feels much better denies feeling lightheadedness or dizzy, however does feel weak. Denies any nausea, vomiting, diarrhea, dysuria. Review of Systems As per HPI, other systems reviewed by me and negative. Past Family Social History Past Medical History 1. Hyperlipidemia. 2. Fibrillation. 3. CAD status post CABG. 4. Urinary incontinence. 5. CKD stage II. 6. Depression. 7. Hypertension. 8. DVT. 9. GERD. 10. History of liver disease. Past Surgical History 1. Appendectomy plan 2. Tonsillectomy. 3. CABG 4. 4. Mitral valve repair. Reported Medications Last Impressions Head CT 08/02/17 9825 Signed Impressions: Service Date/Time: Wednesday, August 02, 2017 22:52 - CONCLUSION: 1. Atrophy as described above. No evidence of acute intracranial pathology. Vinod Wright MD Chest X-Ray 08/02/17 8051 Signed Impressions: Service Date/Time: Wednesday, August 02, 2017 22:16 - CONCLUSION: 1. Postoperative median sternotomy and mitral valve surgery. Small left-sided pleural effusion and basilar airspace disease. Miguel Powell MD Allergies: Coded Allergies: No Known Allergies (Verified Allergy, Unknown, 08/02/17) Active Ordered Medications Current Medications Medications (Trade) Dose Ordered Sig/Giles Route Start Time Stop Time Status Last Admin Sodium Chloride 77 meq/Dextrose 1,019.25 ml @ 5 mls/hr Q24H IV 08/02/17 22:15 08/02/17 22:32 (D50w (Vial) Inj) 50 ml UNSCH PRN IV PUSH 08/02/17 23:15 08/03/17 05:51 (Glucagon Inj) 1 mg UNSCH PRN OTHER 08/02/17 23:15 (NS Flush) 2 ml UNSCH PRN IV FLUSH 08/02/17 23:15 (NS Flush) 2 ml BID IV FLUSH 08/03/17 09:00 (Zofran Inj) 4 mg Q6H PRN IVP 08/02/17 23:15 (Tylenol) 650 mg Q6H PRN PO 08/02/17 23:15 (Randolph 5-325 Mg) 1 tab Q4H PRN PO 08/02/17 23:15 (Randolph 10-325 Mg) 1 tab Q4H PRN PO 08/02/17 23:15 (Kristi-Colace) 1 tab BID PO 08/03/17 09:00 08/03/17 08:35 (Milk Of Magnesia Liq) 30 ml Q12H PRN PO 08/02/17 23:15 (Senokot) 17.2 mg Q12H PRN PO 08/02/17 23:15 (Dulcolax Supp) 10 mg DAILY PRN RECTAL 08/02/17 23:15 (Lactulose Liq) 30 ml DAILY PRN PO 08/02/17 23:15 (Aspirin Chew) 81 mg DAILY CHEW 08/03/17 09:00 08/03/17 08:35 (Flomax) 0.4 mg HS PO 08/03/17 21:00 Dextrose 1,000 ml @ 25 mls/hr Q24H IV 08/03/17 03:15 08/03/17 03:33 Family History Patient's father from liver cancer. Patient's grandmother was diabetic. Social History The patient states he has never smoked and drinks occasional glass of wine. Physical Exam Vital Signs Vital Signs Date Time Temp Pulse Resp B/P (MAP) Pulse Ox O2 Delivery O2 Flow Rate FiO2 08/03/17 08:00 98.0 70 14 120/63 (82) 96 08/03/17 04:00 08/03/17 00:00 98.1 70 16 150/80 (103) 96 08/02/17 23:50 73 16 131/74 (93) 97 08/02/17 23:00 64 16 115/66 (82) 96 Room Air 08/02/17 22:38 62 18 95 Room Air 08/02/17 22:00 73 18 95 Room Air 08/02/17 21:59 98.9 73 18 131/69 (89) 95 Physical Exam GENERAL: This is a well-nourished, well-developed patient, in no apparent distress. SKIN: No rashes, ecchymoses or lesions. Cool and dry. HEAD: Atraumatic. Normocephalic. No temporal or scalp tenderness. EYES: Pupils equal round and reactive. Extraocular motions intact. No scleral icterus. No injection or drainage. ENT: Nose without bleeding, purulent drainage or septal hematoma. Throat without erythema, tonsillar hypertrophy or exudate. Uvula midline. Airway patent. NECK: Trachea midline. No JVD or lymphadenopathy. Supple, nontender, no meningeal signs. CARDIOVASCULAR: Regular rate and rhythm without murmurs, gallops, or rubs. RESPIRATORY: Decreased breath sounds with fine crackles and bronchial sounds on the left lower lung. The rest is clear to auscultation bilaterally. No wheezing, rhonchi auscultated. GASTROINTESTINAL: Abdomen soft, non-tender, nondistended. No hepato-splenomegaly , or palpable masses. No guarding. MUSCULOSKELETAL: Extremities without clubbing, cyanosis, or edema. No joint tenderness, effusion, or edema noted. No calf tenderness. Negative Homans sign bilaterally. NEUROLOGICAL: Awake and alert. Cranial nerves II through XII intact. Motor and sensory grossly within normal limits. Five out of 5 muscle strength in all muscle groups. Normal speech. Laboratory Laboratory Tests Test 08/02/17 22:10 08/03/17 08:00 White Blood Count 9.4 9.1 Red Blood Count 4.05 3.80 Hemoglobin 12.0 11.1 Hematocrit 36.0 33.8 Mean Corpuscular Volume 88.9 88.9 Mean Corpuscular Hemoglobin 29.7 29.1 Mean Corpuscular Hemoglobin Concent 33.4 32.8 Red Cell Distribution Width 13.4 13.7 Platelet Count 314 318 Mean Platelet Volume 7.3 7.1 Neutrophils (%) (Auto) 78.6 75.0 Lymphocytes (%) (Auto) 11.3 15.5 Monocytes (%) (Auto) 8.3 7.7 Eosinophils (%) (Auto) 1.0 1.3 Basophils (%) (Auto) 0.8 0.5 Neutrophils # (Auto) 7.3 6.9 Lymphocytes # (Auto) 1.1 1.4 Monocytes # (Auto) 0.8 0.7 Eosinophils # (Auto) 0.1 0.1 Basophils # (Auto) 0.1 0.0 CBC Comment DIFF FINAL DIFF FINAL Differential Comment Prothrombin Time 17.8 17.4 Prothromb Time International Ratio 1.8 1.7 Activated Partial Thromboplast Time 33.8 Blood Urea Nitrogen 16 16 Creatinine 1.00 0.94 Random Glucose 58 86 Total Protein 6.7 6.4 Albumin 2.7 2.6 Calcium Level 8.9 8.8 Aspartate Amino Transf (AST/SGOT) 20 18 Alanine Aminotransferase (ALT/SGPT) 21 19 Total Bilirubin 0.4 0.6 Sodium Level 141 138 Potassium Level 3.6 3.9 Chloride Level 107 105 Carbon Dioxide Level 28.4 27.1 Anion Gap 6 6 Estimat Glomerular Filtration Rate 70 76 Total Creatine Kinase 52 Troponin I LESS THAN 0.02 B-Type Natriuretic Peptide 343 Lipase 171 Thyroid Stimulating Hormone 3rd Gen 3.490 Alkaline Phosphatase 56 Result Diagram: 08/03/17 0800 08/03/17 0800 Imaging Last Impressions Head CT 08/02/172206 Signed Impressions: Service Date/Time: Wednesday, August 02, 2017 22:52 - CONCLUSION: 1. Atrophy as described above. No evidence of acute intracranial pathology. Vinod Wright MD Chest X-Ray 08/02/172206 Signed Impressions: Service Date/Time: Y[place], August 02, 2017 22:16 - CONCLUSION: 1. Postoperative median sternotomy and mitral valve surgery. Small left-sided pleural effusion and basilar airspace disease. Miguel Powell MD Images reviewed by me. Caprini VTE Risk Assessment Caprini VTE Risk Assessment: Mod/High Risk (score >= 2) Caprini Risk Assessment Model Point Value = 1 Point Value = 2 Point Value = 3 Point Value = 5 Age 41-60 Minor surgery BMI > 25 kg/m2 Swollen legs Varicose veins or History of unexplained or recurrent spontaneous Oral contraceptives or hormone replacement Sepsis (< 1 month) Serious lung disease, including pneumonia (< 1 month) Abnormal pulmonary function Acute myocardial infarction Congestive heart failure (< 1 month) History of inflammatory bowel disease Medical patient at bed rest Age 61-74 Arthroscopic surgery Major open surgery (> 45 min) Laparoscopic surgery (> 45 min) Malignancy Confined to bed (> 72 hours) Immobilizing plaster cast Central venous access Age >= 75 History of VTE Family history of VTE Factor V Leiden Prothrombin [id number] Lupus anticoagulant Anticardiolipin antibodies Elevated serum homocysteine Heparin-induced thrombocytopenia Other congenital or acquired thrombophilia Stroke (< 1 month) Elective arthroplasty Hip, pelvis, or leg fracture Acute spinal cord injury (< 1 month) Prophylaxis Regimen Total Risk Factor Score Risk Level Prophylaxis Regimen 0-1 Low Early ambulation 2 Moderate Order ONE of the following: *Sequential Compression Device (SCD) *Heparin 5000 units SQ BID 3-4 Higher Order ONE of the following medications: *Heparin 5000 units SQ TID *Enoxaparin/Lovenox 40 mg SQ daily (WT < 150 kg, CrCl > 30 mL/min) *Enoxaparin/Lovenox 30 mg SQ daily (WT < 150 kg, CrCl > 10-29 mL/min) *Enoxaparin/Lovenox 30 mg SQ BID (WT < 150 kg, CrCl > 30 mL/min) AND/OR *Sequential Compression Device (SCD) 5 or more Highest Order ONE of the following medications: *Heparin 5000 units SQ TID (Preferred with Epidurals) *Enoxaparin/Lovenox 40 mg SQ daily (WT < 150 kg, CrCl > 30 mL/min) *Enoxaparin/Lovenox 30 mg SQ daily (WT < 150 kg, CrCl > 10-29 mL/min) *Enoxaparin/Lovenox 30 mg SQ BID (WT < 150 kg, CrCl > 30 mL/min) AND *Sequential Compression Device (SCD) Assessment and Plan Problem List: (1) Hypoglycemia secondary to sulfonylurea ICD Code: T38.3X1A - Poisoning by insulin and oral hypoglycemic [antidiabetic] drugs, accidental (unintentional), initialencounter; E16.0 - Drug-induced hypoglycemia without coma Status: Acute (2) CAP (community acquired pneumonia) ICD Code: J18.9 - Pneumonia, unspecified organism (3) Atrial fibrillation ICD Code: I48.91 - Unspecified atrial fibrillation (4) Subtherapeutic international normalized ratio (INR) ICD Code: R79.1 - Abnormal coagulation profile (5) CAD (coronary artery disease) ICD Code: I25.10 - Atherosclerotic heart disease of unga coronary artery without angina pectoris (6) BPH (benign prostatic hyperplasia) ICD Code: N40.0 - Benign prostatic hyperplasia without lower urinary tract symptoms Assessment and Plan As the patient outpatient observation. Blood sugars are improving and in the 200s range. Will DC 10 monitor blood sugars. Continue to monitor Accu-Chek Hold glyburide and metformin. Start the patient IV Rocephin and IV azithromycin for community-acquired pneumonia. Continue aspirin, beta-shayla, furosemide, statin for CAD. Continue Flomax and finasteride for BPH. DVT prophylaxis: The patient on Coumadin. Discussed Condition With Patient, patient's . 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
[2017-08-03 12:00] VITALS: BP 130/65; PULSE 66; RESP 16; TEMP 96.3; O2SAT 97
[2017-08-03] MEDS ORDERED: PILL SPLITTER OTHER PRN (12:00)
[2017-08-03] MEDS ORDERED: cefTRIAXone INJ 2,000 MG in SODIUM CHLORIDE 0.9% INJ 100 ML IV SCH (13:00)
[2017-08-03] MEDS: METOPROLOL SUCCINATE 25 MG EXTENDED RELEASE TAB PO SCH (13:36)
[2017-08-03] MEDS: FINASTERIDE 5 MG TAB PO SCH (13:37)
[2017-08-03] MEDS ORDERED: AZITHROMYCIN INJ 500 MG in SODIUM CHLOR 0.9% 250 ML INJ 250 ML IV SCH (14:00)
[2017-08-03 16:00] VITALS: BP 129/76; PULSE 70; RESP 15; TEMP 99; O2SAT 96
--- NOTE | 2017-08-03 17:06 | EKG ---
Date Performed: 08/02/2017 Time Performed: 22:33:10 PTAGE: 87 years EKG: Irregular supraventricular rhythm, potentially consistent with atrial fibrillation. Nonspec ific ST-T wave changes Compared to previous tracing, the patient now appears to be in atrial fibrilla tion. ABNORMAL RHYTHM ECG PREVIOUS TRACING : 10/15/2008 17.48 DOCTOR: Josefa Henry Interpretating Date/Time 08/03/2017 17:05:08
[2017-08-03] MEDS: guaiFENesin/DEXTROMETHORPHAN 200 MG/20 MG/10 ML CUP PO PRN (17:22)
[2017-08-03 20:00] VITALS: BP 121/63; PULSE 63; RESP 18; TEMP 98.8; O2SAT 95
[2017-08-03] MEDS ORDERED: ATORVASTATIN 20 MG TAB PO SCH (21:00)
[2017-08-03] MEDS ORDERED: TAMSULOSIN HCL 0.4 MG CAP PO SCH (21:00)
[2017-08-04] VITALS: BP 119/56; PULSE 65; RESP 18; TEMP 98.4; O2SAT 94
[2017-08-04] MEDS: guaiFENesin/DEXTROMETHORPHAN 200 MG/20 MG/10 ML CUP PO PRN (01:41)
[2017-08-04] MEDS: ASPIRIN 81 MG CHEW TAB CHEW SCH (07:47)
[2017-08-04] MEDS: FINASTERIDE 5 MG TAB PO SCH (07:48)
[2017-08-04] MEDS: SODIUM CHLORIDE 0.9% FLUSH 10 ML FLUSH IV FLUSH SCH (07:48)
[2017-08-04] MEDS: METOPROLOL SUCCINATE 25 MG EXTENDED RELEASE TAB PO SCH (07:48)
[2017-08-04] MEDS: DOCUSATE SODIUM 50 MG/SENNA 8.6 MG TAB PO SCH (07:48)
[2017-08-04 07:49] LABS: AUTOMATED NEUTROPHIL # 6.7 TH/MM3 (1.8-7.7); BASOPHIL % 0.4 % (0.0-2.0); EOSINOPHIL # 0.3 TH/MM3 (0-0.4); EOSINOPHIL % 2.8 % (0.0-4.0); HEMATOCRIT 34.7 % (39.0-51.0); HEMOGLOBIN 11.2 GM/DL (13.0-17.0); LYMPH % 14.3 % (9.0-44.0); LYMPHOCYTE # 1.3 TH/MM3 (1.0-4.8); MEAN CELL VOLUME 89.1 FL (80.0-100.0); MEAN CORPUSCULAR HEMOGLOBIN 28.8 PG (27.0-34.0); MEAN CORPUSCULAR HGB CONC 32.3 % (32.0-36.0); MEAN PLATELET VOLUME 7.2 FL (7.0-11.0); MONO % 7.9 % (0.0-8.0); MONOCYTE # 0.7 TH/MM3 (0-0.9); NEUT % 74.6 % (16.0-70.0); PLATELET COUNT 310 TH/MM3 (150-450); RED CELL DISTRIBUTION WIDTH 13.4 % (11.6-17.2)
[2017-08-04 08:00] VITALS: BP 127/76; PULSE 64; RESP 15; TEMP 98; O2SAT 93
[2017-08-04 08:12] LABS: CHLORIDE 106 MEQ/L (98-107); SODIUM (NA) 138 MEQ/L (136-145)
[2017-08-04 08:13] LABS: INTERNATIONAL NORMALIZED RATIO 1.7 RATIO; PROTHROMBIN TIME - PATIENT 17.3 SEC (9.8-11.6)
[2017-08-04 08:21] LABS: CALCIUM 8.7 MG/DL (8.5-10.1)
[2017-08-04 08:22] LABS: ALBUMIN 2.5 GM/DL (3.4-5.0); BLOOD UREA NITROGEN 16 MG/DL (7-18); GLUCOSE,RANDOM 130 MG/DL (74-106); MAGNESIUM 2.2 MG/DL (1.5-2.5)
[2017-08-04 08:25] LABS: ALT (GPT) 20 U/L (12-78); AST (GOT) 19 U/L (15-37); CREATININE 0.99 MG/DL (0.60-1.30); GLOMERULAR FILTRATION RATE 71 ML/MIN (>89); PHOSPHORUS 2.6 MG/DL (2.5-4.9)
[2017-08-04 08:26] LABS: TOTAL BILIRUBIN ADULT 0.5 MG/DL (0.2-1.0)
[2017-08-04 08:27] LABS: TOTAL PROTEIN 6.2 GM/DL (6.4-8.2)
[2017-08-04 08:28] LABS: ALKALINE PHOSPHATASE 57 U/L (45-117)
[2017-08-04] MEDS ORDERED: MIRABEGRON 50 MG PO SCH (09:00)
[2017-08-04] MEDS ORDERED: CHOLECALCIFEROL (VIT D3) 400 UNIT TAB PO SCH (09:00)
[2017-08-04] MEDS ORDERED: FENOFIBRATE 145 MG TAB PO SCH (09:00)
[2017-08-04] MEDS ORDERED: ZITH500T PO ×2 (11:14→13:39)
--- NOTE | 2017-08-04 11:15 | HHI.DCPOC ---
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 Avoid second hand smoke Call the 24-hour hour crisis hotline for domestic abuse at Tomas Mckinnon Aug 04, 2017 11:15
--- NOTE | 2017-08-04 11:16 | HHI.FF ---
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 My clinical findings support the need for the requested home health care services because: Deconditioned w/ increased weakness I certify that my clinical findings support that this patient is homebound because: Unsteady gait/balance Unsafe to leave home unassisted Tomas Mckinnon Aug 04, 2017 11:16
[2017-08-04] MEDS ORDERED: GLUCTES12 ×2 (11:18→13:39)
[2017-08-04] MEDS ORDERED: LANCETS1 MI1 ×2 (11:18→13:39)
[2017-08-04] MEDS ORDERED: GLUCKIT15 ×2 (11:18→13:39)
[2017-08-04 11:34] LABS: HEMOGLOBIN A1C 7.4 % (4.3-6.0)
[2017-08-04 12:00] VITALS: BP 150/72; PULSE 68; RESP 12; TEMP 97; O2SAT 95
--- NOTE | 2017-08-04 12:26 | HHI.DS ---
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 ICD Code: T38.3X1A - Poisoning by insulin and oral hypoglycemic [antidiabetic] drugs, accidental (unintentional), initialencounter; E16.0 - Drug-induced hypoglycemia without coma Status: Acute (2) CAP (community acquired pneumonia) ICD Code: J18.9 - Pneumonia, unspecified organism (3) Atrial fibrillation ICD Code: I48.91 - Unspecified atrial fibrillation (4) Subtherapeutic international normalized ratio (INR) ICD Code: R79.1 - Abnormal coagulation profile (5) CAD (coronary artery disease) ICD Code: I25.10 - Atherosclerotic heart disease of augustine coronary artery without angina pectoris (6) BPH (benign prostatic hyperplasia) ICD Code: N40.0 - Benign prostatic hyperplasia without lower urinary tract symptoms Procedures None Brief History - From Admission This is an 87-year-old male with extensive past medical history as detailed below who presented to [facility] after he experienced an episode of feeling lightheaded with DC and then he placed himself down because he was afraid he would fall. The patient also elicits some history of generalized weakness. The patient called EMS services. The patient also states he has been coughing for couple weeks however denies fevers or chills. When EMS arrived as per ED physician of record. The patient's blood sugar was 26 and he was given D50 after which his blood sugars went up to the 200s. By the time he arrived to the ER he was brought down to the 90s and repeat shortly after was down to 60. Patient states he is on metformin and glyburide and he has been recently started by his primary care physician. The patient also states that he does not skip meals and he has been taking his medications as instructed. The patient currently states he feels much better denies feeling lightheadedness or dizzy, however does feel weak. Denies any nausea, vomiting, diarrhea, dysuria. CBC/BMP: 08/04/17 0722 08/04/17 0722 Significant Findings Laboratory Tests Test 08/02/17 22:10 08/03/17 08:00 08/03/17 14:58 08/04/17 07:22 Red Blood Count 4.05 MIL/MM3 (4.50-5.90) 3.80 MIL/MM3 (4.50-5.90) 3.90 MIL/MM3 (4.50-5.90) Hemoglobin 12.0 GM/DL (13.0-17.0) 11.1 GM/DL (13.0-17.0) 11.2 GM/DL (13.0-17.0) Hematocrit 36.0 % (39.0-51.0) 33.8 % (39.0-51.0) 34.7 % (39.0-51.0) Neutrophils (%) (Auto) 78.6 % (16.0-70.0) 75.0 % (16.0-70.0) 74.6 % (16.0-70.0) Monocytes (%) (Auto) 8.3 % (0.0-8.0) Prothrombin Time 17.8 SEC (9.8-11.6) 17.4 SEC (9.8-11.6) 17.3 SEC (9.8-11.6) Activated Partial Thromboplast Time 33.8 SEC (24.3-30.1) Random Glucose 58 MG/DL (74-106) 165 MG/DL (74-106) 130 MG/DL (74-106) Albumin 2.7 GM/DL (3.4-5.0) 2.6 GM/DL (3.4-5.0) 2.5 GM/DL (3.4-5.0) Estimat Glomerular Filtration Rate 70 ML/MIN (>89) 76 ML/MIN (>89) 71 ML/MIN (>89) Troponin I LESS THAN 0.02 NG/ML B-Type Natriuretic Peptide 343 PG/ML (0-100) Total Protein 6.2 GM/DL (6.4-8.2) Imaging Last Impressions Head CT 08/02/172 Signed Impressions: Service Date/Time: Wednesday, August 02, 2017 22:52 - CONCLUSION: 1. Atrophy as described above. No evidence of acute intracranial pathology. Vinod Wright MD Chest X-Ray 08/02/17 5443 Signed Impressions: Service Date/Time: Wednesday, August 02, 2017 22:16 - CONCLUSION: 1. Postoperative median sternotomy and mitral valve surgery. Small left-sided pleural effusion and basilar airspace disease. Miguel Powell MD PE at Discharge GENERAL: Well-developed, well-nourished, in no acute distress. alert and orientated HEENT: Head is normocephalic without any lesions or masses noted. Facial features are symmetric. Eyes:. Extraocular muscles are intact. Conjunctivae were clear. NECK: Supple without any masses. Trachea midline no deviation. No JVD, CARDIAC: Regular rhythm, regular rate. S1/S2 are heard. 2/6 ejection murmur, no gallops or rubs. LUNGS: Clear to auscultation bilaterally. No wheeze, rhonchi or rales. No use of accessory muscles on inspiration or expiration. ABDOMEN: Soft, nontender. Nondistended. Bowel sounds heard in all 4 quadrants. No organomegaly or masses. Negative rebound, negative guarding EXTREMITIES: No edema, pulses are equal bilaterally. No cyanosis or clubbing NEUROLOGY: Mood and affect appear appropriate. Cranial nerves II through XII grossly intact. Moving all extremities, speech is clear Hospital Course 87-year-old male who was admitted for persistent hypoglycemia. According documentation the patient was recently started on metformin and glyburide by his primary medical doctor it was feeling lightheaded and thought he was going to fall. EMS found him to have blood glucose of 26 and patient was given D50 in the sugars 1-200. The patient was brought to the emergency department and recheck glucose was 90 and shortly after went down to 60. Because of that the patient was admitted to the hospital for further recommendations. Patient was admitted to the hospital with continue monitoring of his glucose and during his stay his blood glucose levels over the last 24 hours have been 154-571. It was found that whenever he did check his Accu- Cheks in the left upper extremity it was higher than in the right upper extremity by evaluation with laboratory drawn blood and corresponded with Accu- Cheks. Patient last 12 hours of blood glucose has been 144-185. Patient clinically improved and very eager to go home. During patient's workup he had a chest x-ray performed which did indicate small left-sided pleural effusion and basilar airspace disease. Patient was started treatment for many acquired pneumonia with Rocephin and Zithromax. Patient does admit to cough with yellow phlegm production. Patient did have physical therapy evaluation recommends home with home health care. Case management consulted for home health care. Family would also like glucometer so they can monitor his glucose. I discussed with him that he needed to follow-up with their primary medical doctor prior to restarting any diabetic medications. They should keep a diabetic log of glucose readings 4 times a day before meals and at bedtime so primary doctor can make appropriate medication adjustments. We will plan discharge home with home health care for physical therapy and nursing care. Request home health care provide diabetic education. Pt Condition on Discharge: Stable Discharge Disposition: Disch w/ Home Health Serv Discharge Time: > 30 minutes Discharge Instructions DIET: Follow Instructions for: Diabetic Diet Activities you can perform: Regular-No Restrictions Follow up Referrals: PCP Follow-up - 1 Week New Medications: Azithromycin (Zithromax) 500 Mg Tab 500 MG PO DAILY for Infection for 7 Days, #7 TAB 0 Refills Blood Glucose Monitoring W/Device (Glucocom Blood Glucose Mo W/Device) 1 Kit Kit KIT .XX DIRECTED for Blood Sugar Management, #1 Glucocom Test Strips (Glucocom Test Strips) 1 Corrina Corrina EA .XX DIRECTED for Blood Sugar Management, #1 Lancets (Lancets) 1 Mis Mis EA .XX DIRECTED for Blood Sugar Management, #1 0 Refills Continued Medications: Aspirin (Aspirin) 81 Mg Chew 81 MG CHEW DAILY, TAB 0 Refills Atorvastatin (Lipitor) 20 Mg Tab 20 MG PO HS for Cholesterol Management, #30 TAB 0 Refills Cholecalciferol (Vitamin D3) 400 Unit Cap 800 UNITS PO DAILY for Nutritional Supplement, #1 BOTTLE 0 Refills Fenofibrate (Tricor) 145 Mg Tab 145 MG PO DAILY, #30 TAB 0 Refills Takw with food. Finasteride (Finasteride) 5 Mg Tab 5 MG PO DAILY for Manage Prostate Problems, #30 TAB 0 Refills Do not crush. Furosemide (Furosemide) 20 Mg Tab 20 MG PO DAILY, #30 TAB 0 Refills Metoprolol Succinate ER 24 HR (Toprol XL) 25 Mg Tab 25 MG PO DAILY, #30 TAB 0 Refills Mirabegron (Myrbetriq) 50 Mg Tab 50 MG PO DAILY for Urinary Symptom Managemen, #30 TAB 0 Refills Multiple Vitamin (Multi Vitamin Daily) 1 Tab Tab Oolitic-3 Fatty Acids (Fish Oil) 1,000 Mg Cap 1200 MG PO DAILY Potassium Chloride ER (Klor-Con 10) 10 Meq Tab 10 MEQ PO DAILY for Electrolyte Replacement, #30 TAB 0 Refills Tamsulosin (Tamsulosin) 0.4 Mg Cap 0.4 MG PO HS for Manage Prostate Problems, #30 CAP 0 Refills Warfarin (Warfarin) 1 Mg Tab 1.5 MG PO M,W,F for Blood Clot Prevention, #30 TAB 0 Refills Tomas Mckinnon Aug 04, 2017 12:26
== END 2017-08-04 14:37 | disposition home health service (06) ==
LOC: PHED 21:59 → PHEDA 23:09 → PH3A 23:44
PROVIDERS: ADMIT Hospitalist; ATTEND Hospitalist
DX: E16.0 Drug-induced hypoglycemia without coma (principal); T38.3X5A Adverse effect of insulin and oral hypoglycemic [antidiabetic] drugs, initial encounter; E11.22 Type 2 diabetes mellitus with diabetic chronic kidney disease; N18.2 Chronic kidney disease, stage 2 (mild); I12.9 Hypertensive chronic kidney disease with stage 1 through stage 4 chronic kidney disease, or unspecified chronic kidney disease; J18.9 Pneumonia, unspecified organism; J90 Pleural effusion, not elsewhere classified; I48.91 Unspecified atrial fibrillation; N40.0 Benign prostatic hyperplasia without lower urinary tract symptoms; R79.1 Abnormal coagulation profile; I25.10 Atherosclerotic heart disease of native coronary artery without angina pectoris; E78.5 Hyperlipidemia, unspecified; K21.9 Gastro-esophageal reflux disease without esophagitis; Z79.01 Long term (current) use of anticoagulants; Z79.84 Long term (current) use of oral hypoglycemic drugs; Z95.1 Presence of aortocoronary bypass graft; Z80.0 Family history of malignant neoplasm of digestive organs
CPT/HCPCS: 70450; 71045; 80053; 82550; 82947; 82948; 83036; 83690; 83735; 83880; 84100; 84443; 84484; 85025; 85610; 85730; 93005; 96361; 96365; 96368; 96375; 97162; 99285; G0378; G8987; G8988; J0456; J0696; J7050

== ENCOUNTER 2017-08-16 14:48 | Emergency (ER) | payer MEDICARE, OTHER ==
[~2017-08-16 14:48] MED LIST changes: +GLUCKIT15; +GLUCTES12; +LANCETS1 MI1; +ZITH500T PO
--- NOTE | 2017-08-16 15:13 | PD ---
HPI Chief Complaint: Code Blue Time Seen by Provider: 14:55 Travel History International Travel<30 days: No (UTO) Contact w/Intl Traveler<30days: No (UTO) Traveled to known affect area: No (UTO) History of Present Illness HPI 87-year-old male was brought in by EMS after cardiopulmonary arrest. Patient was at home today. Patient has physical therapist came to visit. The physical therapist with the patient became unresponsive at home. Patient collapsed while walking with a walker. EMS was called. Chest compressions started at the scene. I/O started on the right leg. Patient was given epinephrine and bicarbonate IV. Patient regained pulse. Patient was bradycardic and palpable pulse. Patient was transported to the ED. Family requested no further resuscitation effort. Patient lost pulse on the way to the ED. Patient arrived to the ED without any spontaneous cardiopulmonary activity. PFSH Past Medical History Arthritis: No Asthma: No Atrial Fibrillation: Yes Blood Disorders: No Anxiety: No Depression: Yes (PT STATES DEPRESSION OFF AND ON) Heart Rhythm Problems: Yes Cancer: No Cardiovascular Problems: Yes (CABG X4 VESSELS, AND MITRAL VALVE REPAIR) High Cholesterol: Yes Chest Pain: No Congestive Heart Failure: No COPD: No Cerebrovascular Accident: No Coronary Artery Disease: Yes Diabetes: No Diminished Hearing: No Deep Vein Thrombosis: Yes Endocrine: No Gastrointestinal Disorders: Yes GERD: Yes Genitourinary: Yes Headaches: No Hepatitis: Yes (PT STATED "CATARRHAL JAUNDICE") Hiatal Hernia: Yes Hypertension: Yes Immune Disorder: No Kidney Stones: No Musculoskeletal: No Neurologic: No Psychiatric: Yes Reproductive: No Respiratory: No Migraines: No Myocardial Infarction: No Renal Failure: No Seizures: No Sleep Apnea: No Ulcer: No Past Surgical History Abdominal Surgery: Yes Appendectomy: Yes Cardiac Surgery: Yes (CABG, valve repair) Cholecystectomy: No Coronary Artery Bypass Graft: Yes Ear Surgery: No Endocrine Surgery: No Eye Surgery: Yes Genitourinary Surgery: No Oral Surgery: Yes Thoracic Surgery: Yes Tonsillectomy: Yes Valve Replacement: Yes (MITRAL) Other Surgery: Yes (APPENDECTOMY) Social History Alcohol Use: Yes (SOC) Tobacco Use: No Substance Use: No Allergies-Medications (Allergen,Severity, Reaction): Coded Allergies: No Known Allergies (Verified Allergy, Unknown, 08/02/17) Reported Meds & Prescriptions Reported Meds & Active Scripts Active Glucocom Test Strips (Blood Glucose Test Strips) 1 Corrina Corrina Ea .XX DIRECTED Lancets 1 Mis Mis Ea .XX DIRECTED Glucocom Blood Glucose Mo W/Device (Device) 1 Kit Kit Kit .XX DIRECTED Zithromax (Azithromycin) 500 Mg Tab 500 Mg PO DAILY 7 Days Reported Fish Oil ([place]-3 Fatty Acids) 1,000 Mg Cap 1,200 Mg PO DAILY Vitamin D3 (Cholecalciferol) 400 Unit Cap 800 Units PO DAILY Myrbetriq (Mirabegron) 50 Mg Tab 50 Mg PO DAILY Klor-Con 10 (Potassium Chloride) 10 Meq Tab 10 Meq PO DAILY Lipitor (Atorvastatin Calcium) 20 Mg Tab 20 Mg PO HS Tamsulosin (Tamsulosin HCl) 0.4 Mg Cap 0.4 Mg PO HS Multi Vitamin Daily (Multiple Vitamin) 1 Tab Tab Aspirin 81 Mg Chew 81 Mg CHEW DAILY Furosemide 20 Mg Tab 20 Mg PO DAILY Toprol XL (Metoprolol Succinate) 25 Mg Tab 25 Mg PO DAILY Finasteride 5 Mg Tab 5 Mg PO DAILY Do not crush. Tricor (Fenofibrate) 145 Mg Tab 145 Mg PO DAILY Takw with food. Warfarin 1 Mg Tab 1.5 Mg PO M,W,F Review of Systems ROS Limitations: Unresponsive General / Constitutional: No: Fever Eyes: No: Visual changes HENT: No: Headaches Cardiovascular: No: Chest Pain or Discomfort Respiratory: No: Shortness of Breath Gastrointestinal: No: Abdominal Pain Genitourinary: No: Dysuria Musculoskeletal: No: Pain Skin: No Rash Neurologic: No: Weakness Psychiatric: No: Depression Endocrine: No: Polydipsia Hematologic/Lymphatic: No: Easy Bruising Physical Exam Narrative GENERAL: Well-nourished, well-developed patient. SKIN: Skin is dusky and cold HEAD: Normocephalic. EYES: Pupils nonreactive NECK: Supple, trachea midline. No JVD or lymphadenopathy. CARDIOVASCULAR: No cardiac activity RESPIRATORY: No spontaneous respiration GASTROINTESTINAL: Abdomen soft, nondistended. MUSCULOSKELETAL: cyanosis. BACK: No obvious deformity. Neuro exam: Patient unresponsive. [facility] Medical Decision Making Medical Screen Exam Complete: Yes Emergency Medical Condition: Yes Medical Record Reviewed: Yes Differential Diagnosis Cardiopulmonary arrest Narrative Course 87-year-old male collapsed at home. Patient went into cardiopulmonary arrest. EMS was called. IO was started and chest compressions started. Patient was given epinephrine and bicarb through the IO. Patient regained pulse. Family requested no further effort. Patient lost pulse on the way to ED. I pronounced the patient in ED. Diagnosis Primary Impression: Cardiopulmonary arrest Additional Impressions: History of coronary artery disease History of atrial fibrillation Disposition: 20 Condition: Isaiah Sanon MD Aug 16, 2017 15:13
== END 2017-08-16 16:26 | disposition expired ==
LOC: PHED 14:48
DX: I46.9 Cardiac arrest, cause unspecified (principal); I25.10 Atherosclerotic heart disease of native coronary artery without angina pectoris; I48.91 Unspecified atrial fibrillation; E78.00 Pure hypercholesterolemia, unspecified; I10 Essential (primary) hypertension; F32.9 Major depressive disorder, single episode, unspecified; K21.9 Gastro-esophageal reflux disease without esophagitis; Z86.718 Personal history of other venous thrombosis and embolism
CPT/HCPCS: 99283